=== PATIENT | male | born 1990 | race Hispanic/Latino ===

== ENCOUNTER 2020-07-09 21:37 | Emergency (ER) | payer MEDICAID, OTHER ==
[2020-07-09] MEDS ORDERED: ACETAMINOPHEN-CODEINE 300/30MG TAB ONE (22:25)
[2020-07-09] MEDS ORDERED: ACETAMINOPHEN EXTRA STRENGTH 500 MG TABLET ONE (22:32)
== END 2020-07-09 22:36 | disposition home or self-care (01) ==
LOC: EDH 21:37
DX: S90.31XA Contusion of right foot, initial encounter (principal); Z72.0 Tobacco use; W18.39XA Other fall on same level, initial encounter; Y93.89 Activity, other specified; Y92.89 Other specified places as the place of occurrence of the external cause; Y99.8 Other external cause status
CPT/HCPCS: 73600; 73620

== ENCOUNTER 2020-09-26 20:56 | Emergency (ER) | payer OTHER ==
[~2020-09-26] VITALS: Ht 167.6 cm; Wt 59.0 kg
[2020-09-26 20:58] VITALS: BP 104/51
[2020-09-26 21:15] VITALS: BP 197/87
== END 2020-09-27 02:45 | disposition left against medical advice (07) ==
LOC: EDH 20:56
DX: R06.02 Shortness of breath (principal); Z53.21 Procedure and treatment not carried out due to patient leaving prior to being seen by health care provider